=== PATIENT | female | born 1985 | race Caucasian/White ===

== ENCOUNTER 2022-04-20 12:45 | Emergency (ER) | payer OTHER, SELFPAY ==
[2022-04-20 13:09] VITALS: BP 120/79; PULSE 105; RESP 18; TEMP 36.6; O2SAT 100
--- NOTE | 2022-04-20 13:27 | ED.GENADULT ---
HPI - General Adult General Time Seen by Provider: 13:27 Date Seen: 04/20/22 Chief complaint: Vaginal Bleeding Stated complaint: dizziness, light headed, pos. low hemoglobin Time Seen by Provider: 04/20/22 12:48 Source: patient Mode of arrival: ambulatory Limitations: no limitations History of Present Illness HPI narrative: Patient is a very pleasant 36 year white female has got a 3-1/2-year-old at home, miscarried unfortunately at 5 weeks. She is cared for by Cecilia as an. Her blood type is O-positive. She has not required RhoGAM in the past with a prior miscarriage this year. She felt a little dizzy and lightheaded last night today, but she did get her COVID vac seen yesterday boosted and also got a flu shot. She has had some vaginal bleeding but it is less than it has been. Her primary care doctor was concerned she might have a low hemoglobin so she was asked to come to the emergency department. No chest pain, no fevers, no chills, no cramping in the abdomen Related Data Home Medications Medication Instructions Recorded Confirmed vit no.95-ferrous 1 tab PO DAILY 04/20/22 04/20/22 fumarate 28 mg-folic acid 800 mcg tablet ( Multivitamins) Allergies Allergy/AdvReac Type Severity Reaction Status Date / Time No Known Drug Allergies Allergy Verified 04/20/22 13:13 Review of Systems Status of ROS: Reports: 6 or more systems reviewed and unremarkable except as noted in History and below PFSH PFSH Social History Smoking Status: Never smoker Do you use any of these nicotine containing products: None Second hand tobacco smoke exposure: No How often do you have a drink containing alcohol: monthly or less How often do you have six or more drinks on one occasion: Never AUDIT-C Alcohol total score: 1 Non-prescribed substance use: denies use Exam Narrative: Exam Narrative: Objective: Abdomen is benign soft nontender Extremities unremarkable Blood pressure is 120/79 pulse is 105 O2 sat 100% on room air Patient is noncyanotic In no distress, alert orient x3, works as a senior quality assurance analyst in [employer] Good peripheral perfusion noted Const: Vital Signs, click to edit/add: Vital Signs - 24 hr 04/20/22 13:09 04/20/22 14:07 04/20/22 14:20 Temperature 98 F Pulse Rate [Right Pulse Oximeter] 105 H 82 Pulse Rate [orthos tatic lying Pulse Oximeter] 73 Pulse Rate [orthos tatic sitting Puls e Oximeter] 95 Pulse Rate [orthos tatic standing Pul se Oximeter] 101 H Respiratory Rate 18 Blood Pressure [Ri ght Upper Arm] 120/79 108/70 Blood Pressure [or thostatic lying Ri ght Arm] 107/63 Blood Pressure [or thostatic sitting Right Arm] 103/72 Blood Pressure [or thostatic standing Right Arm] 121/90 H Pulse Oximetry 100 100 Oxygen Delivery Me thod Room Air Room Air Course Vital Signs Vital signs: Initial Vital Signs Temperature 98 F 04/20/22 13:09 Temperature Source Temporal Artery Scan 04/20/22 13:09 Pulse Rate 105 H 04/20/22 13:09 Pulse Rhythm 04/20/22 13:09 Respiratory Rate 18 04/20/22 13:09 Blood Pressure 120/79 04/20/22 13:09 Blood Pressure Mean 92 04/20/22 13:09 Blood Pressure Position Sitting 04/20/22 13:09 Pulse Oximetry 100 04/20/22 13:09 Oxygen Delivery Method 04/20/22 13:09 Vital Signs Temperature 98 F 04/20/22 13:09 Pulse Rate 105 H 04/20/22 13:09 Respiratory Rate 18 04/20/22 13:09 Blood Pressure 120/79 04/20/22 13:09 Pulse Oximetry 100 04/20/22 13:09 Oxygen Delivery Method 04/20/22 13:09 Temperature 98 F 04/20/22 13:09 Pulse Rate 82 04/20/22 14:20 Respiratory Rate 18 04/20/22 13:09 Blood Pressure 108/70 04/20/22 14:20 Pulse Oximetry 100 04/20/22 14:20 Oxygen Delivery Method 04/20/22 14:20 Medical Decision Making MDM Narrative Medical decision making narrative: Patient reports she has had a miscarriage at 5 weeks she is blood type O positive, her oral intake she has to force herself to drink but she is able to drink water adequately will give her some water here. Will check laboratory studies including CBC heme 4. Will check HCG as well. She is confident her blood type. Disposition pending findings, if her orthostatics are not abnormal and her blood is reassuring I think she can be discharged home for observation and then update regular doctor in the next 48 hours, return to ED sooner problems or concerns. Addendum: The patient's lab studies look reasonable, will check her orthostatics, her blood pressure remains solid. Update regular doctor next couple of days, return sooner problems or concerns. Lab Data Labs: Lab Results 04/20/22 04/20/22 04/20/22 Range/Units 12:49 13:30 13:30 WBC 5.34 (4.50-11.00) K/uL RBC 3.54 L (4.00-5.20) m/uL Hgb 10.9 L (12.0-16.0) gm/dL Hct 32.4 L (33.0-51.0) % MCV 92 (80-100) fL MCH 31 (26-34) pg MCHC 34 (32-36) gm/dL RDW Coeff of Brittany 11.9 (11.5-15.5) % Plt Count 254 (140-440) K/uL Neut % (Auto) 57.6 (42.0-72.0) % Lymph % (Auto) 27.5 (20-44) % [place] % (Auto) 12.4 H (0.0-11.0) % Eos % (Auto) 1.7 (0.0-7.0) % Baso % (Auto) 0.4 (0.0-3.0) % Neut # (Auto) 3.08 (1.7-7.0) K/uL Lymph # (Auto) 1.47 (0.90-2.90) K/uL [place] # (Auto) 0.70 (0.00-0.90) K/UL Eos # (Auto) 0.09 (0.00-0.50) K/uL Baso # (Auto) 0.02 (0.00-0.30) K/uL Abs Immat Gran (auto) 0.02 (0.00-0.30) K/uL Imm/Tot Granulo (auto) 0.4 % Sodium 138 (135-149) mmol/L Potassium 4.2 (3.6-5.1) mmol/L Chloride 107 (96-114) mmol/L Carbon Dioxide 25 (20-32) mmol/L BUN 10 (5-24) mg/dL Creatinine 0.7 (0.5-1.5) mg/dL Estimated GFR 116 ml/min Glucose 98 (60-115) mg/dL Calcium 9.0 (8.4-10.6) mg/dL C-Reactive Protein 0.7 (0.5-1.0) mg/dL HCG, Qual Positive (Negative) Discharge Plan Discharge Clinical Impression: Complete miscarriage, Dizziness Patient Disposition: Home w/ Parent or Adult Condition: Stable Additional Instructions: Light activity, rest, fluids, Advil as needed, update primary care physician in the next 48 hours, return to ED sooner problems concerns worsening. Recommend working from home over the next couple of days Activity Level: Light activity Discharge Diet: Regular Prescriptions: No Action PNV cmb#95-ferrous fumarate-FA [ Multivitamins] 28 mg iron- 800 mcg tablet 1 tab PO DAILY Follow Up/Referrals: Cecilia Ricardo MD [Primary Care Provider] - Stand Alone Forms: [employer] Info Instructions
[2022-04-20 13:50] LABS: Basophils Absolute Auto 0.02 K/uL (0.00-0.30); Basophils Percent Auto 0.4 % (0.0-3.0); Eosinophils Absolute Auto 0.09 K/uL (0.00-0.50); Eosinophils Percent Auto 1.7 % (0.0-7.0); Hematocrit 32.4 % (33.0-51.0); Hemoglobin* 10.9 gm/dL (12.0-16.0); Immature Granulocytes Abs Auto 0.02 K/uL (0.00-0.30); Immature Granulocytes Pct Auto 0.4 %; Lymphocytes Absolute Auto 1.47 K/uL (0.90-2.90); Lymphocytes Percent Auto 27.5 % (20-44); Mean Corpuscular HGB Conc 34 gm/dL (32-36); Mean Corpuscular Hemoglobin 31 pg (26-34); Mean Corpuscular Volume 92 fL (80-100); Monocytes Percent Auto 12.4 % (0.0-11.0); Neutrophils Absolute Auto 3.08 K/uL (1.7-7.0); Neutrophils Percent Auto 57.6 % (42.0-72.0); Platelet Count* 254 K/uL (140-440); RDW Coefficient of Variation % 11.9 % (11.5-15.5); Red Blood Count 3.54 m/uL (4.00-5.20); White Blood Count* 5.34 K/uL (4.50-11.00)
[2022-04-20 13:53] LABS: Slide Review Reflex No
[2022-04-20 14:05] LABS: Chloride* 107 mmol/L (96-114); Potassium* 4.2 mmol/L (3.6-5.1); Sodium* 138 mmol/L (135-149)
[2022-04-20 14:07] VITALS: BP 103/72; BP 107/63; BP 121/90; PULSE 101; PULSE 73; PULSE 95
[2022-04-20 14:07] LABS: Creatinine* 0.7 mg/dL (0.5-1.5); Estimated Glomerular Filt Rate 116 ml/min
[2022-04-20 14:08] LABS: Blood Urea Nitrogen* 10 mg/dL (5-24); Carbon Dioxide* 25 mmol/L (20-32); Glucose* 98 mg/dL (60-115)
[2022-04-20 14:11] LABS: C Reactive Protein* 0.7 mg/dL (0.5-1.0)
[2022-04-20 14:20] VITALS: BP 108/70; PULSE 82; O2SAT 100
[2022-04-20 16:13] LABS: HCG Qualitative Serum* Positive (Negative)
== END 2022-04-20 14:27 | disposition home or self-care (01) ==
LOC: ED 13:41
PROVIDERS: Emergency Provider Family Medicine; PCP Family Medicine
DX: R42 Dizziness and giddiness (principal); O03.6 Delayed or excessive hemorrhage following complete or unspecified spontaneous abortion
CPT/HCPCS: 36415; 80048; 84703; 85025; 86140; 87502; 87634; 87635; 99283

== ENCOUNTER 2023-02-22 09:41 | Outpatient (CLI) | payer OTHER, SELFPAY ==
[2023-02-22 10:23] LABS: Hemoglobin* 12.4 gm/dL (12.0-16.0); Mean Corpuscular HGB Conc 34 gm/dL (32-36); Mean Corpuscular Hemoglobin 32 pg (26-34); Mean Corpuscular Volume 94 fL (80-100); Platelet Count* 284 K/uL (140-440); Red Blood Count 3.92 m/uL (4.00-5.20); White Blood Count* 12.51 K/uL (4.50-11.00)
[2023-02-22 10:24] LABS: Slide Review Reflex No
[2023-02-22 10:30] VITALS: PULSE 79; O2SAT 97
[2023-02-22 10:31] VITALS: BP 123/78; PULSE 75; RESP 18; TEMP 36.6
[2023-02-22 10:37] LABS: Creatinine* 0.5 mg/dL (0.5-1.5); Estimated Glomerular Filt Rate 125 ml/min
[2023-02-22 10:38] LABS: Alanine Aminotransferase* 17 U/L (4-35); Aspartate Amino Transferase* 35 U/L (12-35); Blood Urea Nitrogen* 8 mg/dL (5-24)
[2023-02-22 10:40] LABS: Total Protein Urine 15 mg/dL
[2023-02-22 10:41] LABS: Creatinine Urine 18.9 mg/dL
[2023-02-22 10:47] VITALS: BP 114/76; PULSE 76
[2023-02-22 11:02] VITALS: BP 121/75; PULSE 87
[2023-02-22] MEDS: ACETAMINOPHEN 500 MG TABLET 1000 MG PO (11:09)
--- NOTE | 2023-02-22 12:09 | PC.OBNST ---
NST Note NST Note Start: 02/22/23 10:02 Freq: ONCE Status: Active Protocol: Document 02/22/23 12:03 [facility] (Rec: 02/22/23 12:09 LG [id number]) NST Note 3 Para (# of births) 1 EDC 05/19/23 Gestational Age In Weeks & Days 27 Weeks & 5 Days Patient Presented with Complaint(s) of Headache Other Complaints Patient presented for triage with complaints of ongoing headache since Monday at 0200. Patient reported headache as being dull and having only occasional relief . Patient reported headache will improve or resolve and then return when Tylenol wears off. Patient did report she felt this was more of a tension headache. Pre- eclampsia labs and serial blood pressures obtained. Reactive tracing. Orders received to discharge patient to home with instructions on when to return. Reactive Yes Appropriate for Gestational Age Yes FADI Stark, RN Date 02/22/23 FADI Bonilla RN Date 02/22/23 OB NST charge Yes Complete NST Note via Write Note Yes The provider's electronic signature indicates the NST is reactive/appropriate for gestational age. *Note to provider: If an addendum is required, open the patient's chart and click on the note under the Nurse/Allied Health tab.
== END 2023-02-22 11:40 | disposition home or self-care (01) ==
LOC: OB OUT 09:47 → OB 10:02
PROVIDERS: PCP Family Medicine; Visit Provider Family Medicine
DX: O26.892 Other specified pregnancy related conditions, second trimester (principal); R51.9 Headache, unspecified; Z3A.27 27 weeks gestation of pregnancy
CPT/HCPCS: 36415; 59025; 82565; 82570; 84156; 84450; 84460; 84520; 85027; 99213; A9270

== ENCOUNTER 2023-05-05 15:20 | Outpatient (CLI) | payer OTHER, SELFPAY ==
[2023-05-05 15:46] VITALS: PULSE 73; O2SAT 98
[2023-05-05 15:51] VITALS: PULSE 83; O2SAT 98
[2023-05-05 15:53] VITALS: BP 126/73; PULSE 72; RESP 16; TEMP 36.6
--- NOTE | 2023-05-05 16:44 | PC.OBNST ---
NST Note NST Note Start: 05/05/23 15:41 Freq: ONCE Status: Active Protocol: Document 05/05/23 15:41 [facility] (Rec: 05/05/23 16:44 [facility] [id number]) NST Note 4 Para (# of births) 1 EDC 05/19/23 Gestational Age In Weeks & Days 38 Weeks & 0 Days Patient Presented with Complaint(s) of Decreased movement Other Complaints Covid positive Reactive Yes Appropriate for Gestational Age Yes RN Calvin RN Date 05/05/23 Reactive Yes Appropriate for Gestational Age Yes FADI Dye RN Date 05/05/23 OB NST charge Yes Complete NST Note via Write Note Yes The provider's electronic signature indicates the NST is reactive/appropriate for gestational age. *Note to provider: If an addendum is required, open the patient's chart and click on the note under the Nurse/Allied Health tab.
--- NOTE | 2023-05-25 14:33 | PC.OBNST ---
NST Note NST Note Start: 05/05/23 15:41 Freq: ONCE Status: Discharge Protocol: Document 05/05/23 15:41 [facility] (Rec: 05/05/23 16:44 [facility] [id number]) NST Note 4 Para (# of births) 1 EDC 05/19/23 Gestational Age In Weeks & Days 38 Weeks & 0 Days Patient Presented with Complaint(s) of Decreased movement Other Complaints Covid positive Reactive Yes Appropriate for Gestational Age Yes RN Calvin RN Date 05/05/23 Reactive Yes Appropriate for Gestational Age Yes FADI Dye RN Date 05/05/23 OB NST charge Yes Complete NST Note via Write Note Yes The provider's electronic signature indicates the NST is reactive/appropriate for gestational age. *Note to provider: If an addendum is required, open the patient's chart and click on the note under the Nurse/Allied Health tab.
== END 2023-05-05 16:50 | disposition home or self-care (01) ==
LOC: OB OUT 15:22 → OB 15:22
PROVIDERS: PCP Family Medicine; Visit Provider Family Medicine
DX: O36.8130 Decreased fetal movements, third trimester, not applicable or unspecified (principal); Z3A.38 38 weeks gestation of pregnancy
CPT/HCPCS: 59025; 99213

== ENCOUNTER 2023-05-10 18:17 | Outpatient (CLI) | payer OTHER, SELFPAY ==
[2023-05-10] VITALS (10 sets, daily range): BP systolic 115–129; BP diastolic 70–77; PULSE 75–88; RESP 16; TEMP 37
[2023-05-10 19:04] LABS: Hematocrit 34.4 % (33.0-51.0); Hemoglobin* 11.5 gm/dL (12.0-16.0); Mean Corpuscular HGB Conc 33 gm/dL (32-36); Mean Corpuscular Hemoglobin 30 pg (26-34); Mean Corpuscular Volume 91 fL (80-100); Platelet Count* 235 K/uL (140-440); Red Blood Count 3.79 m/uL (4.00-5.20)
[2023-05-10 19:09] LABS: Slide Review Reflex No
[2023-05-10 19:32] LABS: Alanine Aminotransferase* 25 U/L (4-35); Aspartate Amino Transferase* 31 U/L (12-35); Blood Urea Nitrogen* 9 mg/dL (5-24); Creatinine* 0.5 mg/dL (0.5-1.5); Estimated Glomerular Filt Rate 125 ml/min
[2023-05-10 19:32] LABS: Total Protein Urine 23 mg/dL
[2023-05-10 19:33] LABS: Creatinine Urine 127.9 mg/dL
--- NOTE | 2023-05-10 23:01 | PC.OBNST ---
NST Note NST Note Start: 05/10/23 18:22 Freq: ONCE Status: Active Protocol: Document 05/10/23 20:40 [facility] (Rec: 05/10/23 23:00 [facility] [id number]) NST Note 4 Para (# of births) 1 EDC 05/19/23 Gestational Age In Weeks & Days 38 Weeks & 5 Days High Risk Factors Advanced Maternal Age Patient Presented with Complaint(s) of Other Other Complaints High blood pressure in clinic at 1600. Reactive Yes Appropriate for Gestational Age Yes FADI Sampson, RNC Date 05/10/23 Reactive Yes Appropriate for Gestational Age Yes FADI Zaldivar, RN Date 05/10/23 OB NST charge Yes Complete NST Note via Write Note Yes The provider's electronic signature indicates the NST is reactive/appropriate for gestational age. *Note to provider: If an addendum is required, open the patient's chart and click on the note under the Nurse/Allied Health tab.
== END 2023-05-10 21:03 | disposition home or self-care (01) ==
LOC: OB OUT 18:17 → OB 18:18
PROVIDERS: PCP Family Medicine; Visit Provider Family Medicine
DX: O09.523 Supervision of elderly multigravida, third trimester (principal); Z3A.38 38 weeks gestation of pregnancy
CPT/HCPCS: 36415; 59025; 82565; 82570; 84156; 84450; 84460; 84520; 85027; G0463

== ENCOUNTER 2023-05-12 17:02 | Inpatient (IN) | payer OTHER, SELFPAY ==
[2023-05-12] VITALS (12 sets, daily range): BP systolic 131–146; BP diastolic 82–93; PULSE 75–93; RESP 16; TEMP 36.7–37.1; O2SAT 98–100; BMI 35.6
[2023-05-12 17:51] LABS: Creatinine Urine 48.9 mg/dL; Total Protein Urine 17 mg/dL
[2023-05-12 18:16] LABS: Hematocrit 35.6 % (33.0-51.0); Hemoglobin* 11.9 gm/dL (12.0-16.0); Mean Corpuscular HGB Conc 33 gm/dL (32-36); Mean Corpuscular Hemoglobin 30 pg (26-34); Mean Corpuscular Volume 91 fL (80-100); Platelet Count* 241 K/uL (140-440); Red Blood Count 3.93 m/uL (4.00-5.20); White Blood Count* 10.24 K/uL (4.50-11.00)
[2023-05-12] MEDS: LACTATED RINGERS 1000 ML 1,000 ML 125 ML IV (18:19)
[2023-05-12] MEDS: OXYTOCIN 30 unit/500 ML in NS 30 UNIT/500 ML BAG IVPB (18:20)
[2023-05-12 18:22] LABS: Slide Review Reflex No
--- NOTE | 2023-05-12 18:28 | PM.OBHPLI ---
OB - H&P: HPI Labor/Induction History of Present Illness Time Seen by Provider: 18:28 Date Seen: 05/12/23 Chief Complaint: The patient is a 37 year old 4 para 1 at 39.0 weeks gestation by early ultrasound (due to irregular periods from prior miscarriage) who presents for IOL for gestational hypertension. Chief complaint: Maternity : 4 Para: 1 Indications for induction: induced hypertension Narrative: Loly Muñoz is a 37 year old 4 para 1 at 39.0 weeks gestation by early ultrasound (due to irregular periods from prior miscarriage) who presents for IOL for gestational hypertension. Patient presented to clinic with headache today. Had work up 2 days ago for 1 elevated bp (had 4 hours of normal BPs at center). Discharged home. Had 2nd elevated BP in clinic today. Given 2 bp readings >4 hours apart elected to do IOL tonight for AMA and gestational hypertension. History of Present Dating criteria: based on 1st trimester US only care: good care Ultrasounds: normal 1st trimester US and normal mid trimester US complications: gestational hypertension complications comment: AMA Labs Blood type: O (+) positive Rubella: immune RPR/VDLR: nonreactive GBS status: negative HBsAG: negative Review of Systems Status of ROS: Reports: 10 or more systems reviewed and unremarkable except as noted in History and below Meds Home Medications and Allergies Home Medications Medication Instructions Recorded Confirmed Type vit no.95-ferrous 1 tab PO DAILY 04/20/22 05/12/23 History fumarate 28 mg-folic acid 800 mcg tablet ( Multivitamins) aspirin 81 mg tablet,delayed 81 mg PO DAILY 05/10/23 05/12/23 History release (Adult Low Dose Aspirin) fluoxetine 10 mg capsule (Prozac) 10 mg PO QAM 05/10/23 05/12/23 History Allergies Allergy/AdvReac Type Severity Reaction Status Date / Time No Known Drug Allergies Allergy Verified 05/10/23 18:59 OB - H&P: Exam Physical Exam: Vital signs: Temp Pulse Resp BP Pulse Ox 98.6 F 83 16 146/93 H 98 05/12/23 17:35 05/12/23 18:27 05/12/23 17:35 05/12/23 18:27 05/12/23 17:32 Constitutional: Constitutional: no acute distress Routine HEENT Exam: Head: Present atraumatic Routine Neck Exam: Neck: Present full ROM Detailed Neck Exam: Thyroids: Thyroid: Present normal Routine Respiratory Exam: Respiratory: Present CTA bilaterally Routine Cardiovascular Exam: Cardiovascular: RRR, S1 and S2 Routine Exam: Perineum Description: Normal Detailed Labor and Delivery Exam: Patient Gravid: Yes Dilation (cm): 3 Effacement (%): 60 Cervix position: mid Consistency: soft Cervical ripeness score: 7 Contraction frequency (min): 5 Tachysystole: No Contraction intensity: Mild Fetus (Single): Station: -2 Amniotic Membrane Status: intact Monitor Accelerations: Present Monitor Decelerations: None Routine Skin Exam: Present intact Routine Neurological Exam: Present alert and oriented X3 OB - Results Labs Labs: Short CBC 05/12/23 Range/Units 18:10 WBC 10.24 (4.50-11.00) K/uL Hgb 11.9 L (12.0-16.0) gm/dL Hct 35.6 (33.0-51.0) % Plt Count 241 (140-440) K/uL OB - Problem Based A/P Additional Plan (1) Gestational HTN: Status: Acute Plan: - preeclampsia labs now - close monitoring of BP (2) Advanced maternal age (AMA) in : Problem details: 37 years old Status: Acute (3) Term : Status: Acute Plan - Pitocin, AROM if needed - FOB on day 8 of covid. (Patient outside of her 10 day quarantine) Delivery/Labor/Induction Plan Plan: induction Induction method: per pitocin protocol
[2023-05-12 18:36] LABS: Creatinine* 0.5 mg/dL (0.5-1.5); Estimated Glomerular Filt Rate 125 ml/min
[2023-05-12 18:37] LABS: Alanine Aminotransferase* 26 U/L (4-35); Aspartate Amino Transferase* 31 U/L (12-35); Blood Urea Nitrogen* 8 mg/dL (5-24)
--- NOTE | 2023-05-12 22:11 | PM.OBPNL ---
Subjective Time Seen by Provider: 21:00 Date Seen: 05/12/23 Narrative: Patient is starting to feel contractions. Objective Exam: walking around room Vital Signs: Last Vital Signs Temp 98.7 F 05/12/23 20:10 Pulse 76 05/12/23 21:37 Resp 16 05/12/23 20:10 BP 137/83 05/12/23 21:37 Pulse Ox 100 05/12/23 20:09 Contractions Monitor mode: External Contraction Frequency: 2-4 Contraction pattern: Regular Contraction intensity: Moderate Pitocin Rate (mU/min): 4 Assessment Assessment: induction ongoing Station: -2 Status: Category l Heart Rate Baseline: 135 Monitor Accelerations: Present Monitor Decelerations: None Maternal Status: Patient's labs returned with Prot/cr ratio of 0.3. Now meets criteria for preeclampsia without severe features. Will monitor closely. Plan Plan: - continue to progress pitocin - AROM if needed.
[2023-05-13] VITALS (18 sets, daily range): BP systolic 119–158; BP diastolic 63–99; PULSE 68–105; RESP 16; TEMP 36.5–37.1; O2SAT 98–100
--- NOTE | 2023-05-13 00:13 | PM.OBPNL ---
Subjective Time Seen by Provider: 00:13 Date Seen: 05/13/23 Narrative: Patient feels contractions are becoming more intense, but still able to rest some. Objective Vital Signs: Last Vital Signs Temp 98.4 F 05/12/23 23:57 Pulse 76 05/12/23 23:56 Resp 16 05/12/23 23:57 BP 137/85 05/12/23 23:56 Pulse Ox 99 05/12/23 23:56 Pelvic Exam Dilation (cm): 5 Effacement (%): 60 Station: -2 Contractions Monitor mode: External Contraction pattern: Regular Contraction intensity: Moderate Pitocin Rate (mU/min): 6 Assessment Assessment: induction ongoing Station: -2 Amniotic Membrane Status: AROM (clear fluid) Status: Category l Heart Rate Baseline: 135 Monitor Accelerations: Present Monitor Decelerations: Variable Labor Progress: AROM now of moderate clear fluid. Plan Plan: - continue IOL - plan on repeat preeclampsia labs at 0600 - No blood pressures in treatable range or signs of severe features - AROM now of clear fluid, hoping this augments labor induction - Anticipate . Patient plans unmedicated.
[2023-05-13] MEDS: LIDOCAINE 1 % PF 30 ML INJECTION (01:45)
--- NOTE | 2023-05-13 02:11 | W.PM.VAGDE_ITS ---
OB Procedure Vag Delivery Mother Details Mother Details: The patient is a 37 year-old, 4, Para 1, admitted on 05/12/23 at Days gestation. : 4 Para: 2 Weeks Gestation: 39.1 Admission Date: 05/12/23 Additional Details Amniotic Membrane Status: AROM Amniotic Membrane Rupture Date: 05/13/23 Amniotic Membrane Rupture Time: 00:02 Amniotic Membrane Fluid Description: Clear Analgesia/Anesthesia Type: None Pitcoin: No Intrapartal Events: Labor Induction and Precipitous Labor <3 Hrs Induction Method: per pitocin protocol and AROM Labor Onset: 00:02 Complete: :31 Pushin:31 Heart: heart tones during second stage had decels to 80s in certain positions (notably squatting and bending forward). Resolved with position changes. Tolerated pushing reasonably well until last push. Had prolonged decel in 80- 90s during last 2 contractions/. Delivery Details Delivery Date: 05/13/23 Delivery Time: 01:34 Route of delivery: Infant Gender: Male Viability: Alive; Heart Rate Present Position at Delivery: OA Delivery Details: Patient was admitted for IOL for gestational htn. Labs shows proteinuria, so preeclampsia was diagnosed. Patient received pitocin for IOL. Had AROM of clear fluid at 0002. Progressed quickly thereafter. She was involuntarily pushing, reduced anterior lip with first push. She pushed very effectively and delivered viable male infant over intact perineum at 0134 via spontaneous vaginal delivery. Nuchal cord x 1 was delivered through. Baby was delivered onto maternal abdomen. Cord was clamped immediately as baby had poor tone/color-- but recovered without being taken to warmer. Nose a mouth were bulb suctioned. Placenta delivered spontaneously. Evaluation of perineum showed 2nd degree laceration that was repaired with 3-0 vicryl in the usual fashion after administration of 8 mls of lidocaine. Fundus was firm. Pitocin was delivered after baby as we lost IV access temporarily. QBL was 150 mls. Infant weight pending. Mom and baby are doing well at the time of this note. 1 Minute Interval Total Score: 6 5 Minute Interval Total Score: 8 Additional Details Shoulder Dystocia: No Placenta Delivery Time: 01:43 Placental Delivery Description: Spontaneous Delivery repair: Vicryl Procedure Done: Global Blood Loss: 150 Laceration: Perineal - 2nd Degree Episiotomy Description: Midline Blood Loss Measurement Type: QBL Bakri Used: No Sponge/Need Count Correct: Yes Cord Vessel Description: 3 Vessels, Nuchal Cord and Delivered through Event Summary Status: Mother and infant were stable after delivery. Disposition: no change
[2023-05-13] MEDS: IBUPROFEN 600 MG TABLET PO ×3 (04:44→20:33)
[2023-05-13 07:24] LABS: Alanine Aminotransferase* 28 U/L (4-35); Aspartate Amino Transferase* 46 U/L (12-35); Blood Urea Nitrogen* 7 mg/dL (5-24); Creatinine* 0.4 mg/dL (0.5-1.5); Est. Creatinine Clearance* 148.13; Estimated Glomerular Filt Rate 132 ml/min
[2023-05-13] MEDS: DOCUSATE SODIUM 100 MG CAPSULE PO (09:28)
[2023-05-13] MEDS: ACETAMINOPHEN 500 MG TABLET 1000 MG PO ×3 (09:28→23:37)
[2023-05-13] MEDS: NIFEdipine 30 MG TAB.ER.24 PO (14:06)
[2023-05-13 19:50] LABS: Hematocrit 32.6 % (33.0-51.0); Mean Corpuscular HGB Conc 34 gm/dL (32-36); Mean Corpuscular Hemoglobin 31 pg (26-34); Mean Corpuscular Volume 92 fL (80-100); Platelet Count* 248 K/uL (140-440); Red Blood Count 3.56 m/uL (4.00-5.20)
[2023-05-13 20:10] LABS: Slide Review Acceptable Review (Acceptable); Slide Review Reflex Yes; White Blood Count* 25.47 K/uL (4.50-11.00)
[2023-05-13 20:34] LABS: Hematocrit 28.5 % (33.0-51.0); Hemoglobin* 9.5 gm/dL (12.0-16.0); Mean Corpuscular HGB Conc 33 gm/dL (32-36); Mean Corpuscular Hemoglobin 31 pg (26-34); Mean Corpuscular Volume 93 fL (80-100); Platelet Count* 217 K/uL (140-440); Red Blood Count 3.07 m/uL (4.00-5.20); White Blood Count* 16.04 K/uL (4.50-11.00)
[2023-05-13 20:38] LABS: Slide Review Reflex No
[2023-05-13 20:49] LABS: Alanine Aminotransferase* 30 U/L (4-35); Aspartate Amino Transferase* 46 U/L (12-35); Creatinine* 0.5 mg/dL (0.5-1.5); Estimated Glomerular Filt Rate 125 ml/min
[2023-05-14] VITALS (12 sets, daily range): BP systolic 115–134; BP diastolic 75–87; PULSE 14–90; RESP 16; TEMP 36.6–37; O2SAT 97–99
[2023-05-14] MEDS: IBUPROFEN 600 MG TABLET PO ×3 (02:32→16:42)
[2023-05-14 04:38] LABS: Basophils Percent Auto 0.3 % (0.0-3.0); Eosinophils Percent Auto 0.6 % (0.0-7.0); Hematocrit 29.1 % (33.0-51.0); Hemoglobin* 9.6 gm/dL (12.0-16.0); Immature Granulocytes Pct Auto 1.9 %; Lymphocytes Percent Auto 16.5 % (20-44); Mean Corpuscular HGB Conc 33 gm/dL (32-36); Mean Corpuscular Hemoglobin 31 pg (26-34); Mean Corpuscular Volume 94 fL (80-100); Monocytes Percent Auto 6.6 % (0.0-11.0); Neutrophils Percent Auto 74.1 % (42.0-72.0); Platelet Count* 220 K/uL (140-440); RDW Coefficient of Variation % 12.9 % (11.5-15.5); Red Blood Count 3.11 m/uL (4.00-5.20); White Blood Count* 14.04 K/uL (4.50-11.00)
[2023-05-14 04:40] LABS: Slide Review Reflex No
[2023-05-14 04:53] LABS: Alanine Aminotransferase* 36 U/L (4-35); Aspartate Amino Transferase* 53 U/L (12-35); Creatinine* 0.5 mg/dL (0.5-1.5); Estimated Glomerular Filt Rate 125 ml/min
[2023-05-14] MEDS: ACETAMINOPHEN 500 MG TABLET 1000 MG PO (07:42)
[2023-05-14] MEDS: DOCUSATE SODIUM 100 MG CAPSULE PO (08:41)
[2023-05-14] MEDS: NIFEdipine 30 MG TAB.ER.24 PO (08:41)
[2023-05-14 12:01] LABS: Hematocrit 28.6 % (33.0-51.0); Hemoglobin* 9.3 gm/dL (12.0-16.0); Mean Corpuscular HGB Conc 33 gm/dL (32-36); Mean Corpuscular Hemoglobin 31 pg (26-34); Mean Corpuscular Volume 94 fL (80-100); Platelet Count* 231 K/uL (140-440); Red Blood Count 3.03 m/uL (4.00-5.20); White Blood Count* 13.17 K/uL (4.50-11.00)
[2023-05-14 12:09] LABS: Slide Review Reflex No
[2023-05-14 12:19] LABS: Alanine Aminotransferase* 60 U/L (4-35); Aspartate Amino Transferase* 82 U/L (12-35); Creatinine* 0.5 mg/dL (0.5-1.5); Estimated Glomerular Filt Rate 125 ml/min
--- NOTE | 2023-05-14 12:52 | P.OBPN_ITS ---
OB - PN:Subj Subjective Date Seen: 05/14/23 Interval history: Patient reports she is doing well this morning, has no particular concerns. going well. Minimal vaginal bleeding without clots noted. Continues to have slight headache on and off, although denies headache during our visit. Also endorses occasional RUQ discomfort with movement at times. Describes this as a mild side stitch like she might have after going for a run or perhaps like gas pain. OB - PN: Obj Exam Physical Exam: Vital signs: Temp Pulse Resp BP Pulse Ox O2 Del Method 98.6 F 82 16 115/77 97 Room Air 05/14/23 08:26 05/14/23 08:26 05/14/23 08:26 05/14/23 08:12 05/14/23 08:26 05/14/23 08:26 Constitutional: Constitutional: no acute distress Routine HEENT Exam: Head: Present atraumatic Routine Respiratory Exam: Respiratory: Present CTA bilaterally Routine Cardiovascular Exam: Cardiovascular: Present RRR; Absent murmur Routine Abdominal Exam: Abdominal: Present normal bowel sounds and soft; Absent guarding or tenderness Fundus: Present firm Comments: no hepatomegaly Routine Extremities Exam: Comments: trace to 1+ b/l LE edema Routine Neurological Exam: Neurological: Present alert and oriented X3 OB - PN: Obj Data Labs Labs: Laboratory Results - last 24 hr 05/13/23 05/13/23 05/14/23 06:45 20:29 04:20 WBC 25.47 H* 16.04 H 14.04 H RBC 3.56 L 3.07 L 3.11 L Hgb 11.0 L 9.5 L 9.6 L Hct 32.6 L 28.5 L 29.1 L MCV 92 93 94 MCH 31 31 31 MCHC 34 33 33 RDW Coeff of Brittany 12.9 Plt Count 248 217 220 Neut % (Auto) 74.1 H Lymph % (Auto) 16.5 L [place] % (Auto) 6.6 Eos % (Auto) 0.6 Baso % (Auto) 0.3 Neut # (Auto) 10.40 H Lymph # (Auto) 2.30 [place] # (Auto) 0.90 Eos # (Auto) 0.10 Baso # (Auto) 0.00 Abs Immat Gran (auto) 0.30 Imm/Tot Granulo (auto) 1.9 Diff Slide Review Acceptable Review Creatinine 0.5 Estimated Creat Clear 118.50 Estimated GFR 125 AST 46 H ALT 30 05/14/23 05/14/23 04:25 11:52 WBC 13.17 H RBC 3.03 L Hgb 9.3 L Hct 28.6 L MCV 94 MCH 31 MCHC 33 RDW Coeff of Brittany Plt Count 231 Neut % (Auto) Lymph % (Auto) [place] % (Auto) Eos % (Auto) Baso % (Auto) Neut # (Auto) Lymph # (Auto) [place] # (Auto) Eos # (Auto) Baso # (Auto) Abs Immat Gran (auto) Imm/Tot Granulo (auto) Diff Slide Review Creatinine 0.5 0.5 Estimated Creat Clear 118.50 118.50 Estimated GFR 125 125 AST 53 H 82 H ALT 36 H 60 H OB - PN: A/P Delivery Assessment and Plan (1) Advanced maternal age (AMA) in : Problem details: 37 years old Status: Acute (2) Term : Status: Acute (3) Pre-eclampsia, severe, delivered: Problem details: based on urine protein/creatinine ratio of 0.3 and AST elevation greater than 2x upper limit of normal Status: Acute Plan 1. Pre-eclampsia with severe features, delivered based on urine protein/creatinine ratio of 0.3 and development of AST elevation greater than 2x upper limit of normal - begin magnesium infusion, 4 g loading with 2 g/hr x24 hrs - labs Q6H (CBC, AST, ALT, Creatinine) - continue nifedipine ER 30 mg/day - continue to monitor headaches, RUQ pain, etc 2. Term , delivered - ad jerrod - routine cares Plan day: 1
[2023-05-14] MEDS: MAGNESIUM IV 4 GM/100 ML PIGGYBACK IVPB (13:12)
[2023-05-14] MEDS: LACTATED RINGERS 1000 ML 1,000 ML 75 ML IV (13:14)
[2023-05-14] MEDS: ACETAMINOPHEN 325 MG TABLET 650 MG PO (14:49)
[2023-05-14] MEDS: FLUOXETINE HCL 10 MG CAPSULE PO (14:49)
[2023-05-14 19:05] LABS: Hematocrit 31.5 % (33.0-51.0); Hemoglobin* 10.3 gm/dL (12.0-16.0); Mean Corpuscular HGB Conc 33 gm/dL (32-36); Mean Corpuscular Hemoglobin 31 pg (26-34); Mean Corpuscular Volume 94 fL (80-100); Platelet Count* 275 K/uL (140-440); Red Blood Count 3.35 m/uL (4.00-5.20); White Blood Count* 13.24 K/uL (4.50-11.00)
[2023-05-14 19:08] LABS: Slide Review Reflex No
[2023-05-14 19:25] LABS: Alanine Aminotransferase* 113 U/L (4-35); Aspartate Amino Transferase* 151 U/L (12-35); Blood Urea Nitrogen* 3 mg/dL (5-24); Creatinine* 0.5 mg/dL (0.5-1.5); Estimated Glomerular Filt Rate 125 ml/min
[2023-05-15] MEDS: IBUPROFEN 600 MG TABLET PO ×4 (00:09→21:12)
[2023-05-15 01:02] LABS: Hemoglobin* 9.5 gm/dL (12.0-16.0); Mean Corpuscular HGB Conc 33 gm/dL (32-36); Mean Corpuscular Hemoglobin 31 pg (26-34); Mean Corpuscular Volume 94 fL (80-100); Platelet Count* 253 K/uL (140-440); White Blood Count* 12.08 K/uL (4.50-11.00)
[2023-05-15 01:07] LABS: Slide Review Reflex No
[2023-05-15 01:18] LABS: Aspartate Amino Transferase* 165 U/L (12-35); Creatinine* 0.5 mg/dL (0.5-1.5); Estimated Glomerular Filt Rate 125 ml/min
[2023-05-15 01:19] LABS: Alanine Aminotransferase* 141 U/L (4-35); Blood Urea Nitrogen* 6 mg/dL (5-24)
[2023-05-15] MEDS: LACTATED RINGERS 1000 ML 1,000 ML 75 ML IV (02:26)
[2023-05-15 04:57] VITALS: BP 125/86; PULSE 81; RESP 10; TEMP 36.6; O2SAT 98
[2023-05-15 06:17] LABS: Hematocrit 31.5 % (33.0-51.0); Hemoglobin* 10.3 gm/dL (12.0-16.0); Mean Corpuscular HGB Conc 33 gm/dL (32-36); Mean Corpuscular Hemoglobin 31 pg (26-34); Mean Corpuscular Volume 94 fL (80-100); Platelet Count* 265 K/uL (140-440); Red Blood Count 3.34 m/uL (4.00-5.20); White Blood Count* 11.25 K/uL (4.50-11.00)
[2023-05-15 06:27] LABS: Slide Review Reflex No
[2023-05-15 06:31] LABS: Albumin* 3.4 g/dL (3.3-5.0)
[2023-05-15 06:32] LABS: Bilirubin Total* 0.1 mg/dL (0.1-1.5)
[2023-05-15 06:34] LABS: Alanine Aminotransferase* 179 U/L (4-35); Alkaline Phosphatase* 201 U/L (40-150); Aspartate Amino Transferase* 196 U/L (12-35); Bilirubin Total* 0.1 mg/dL (0.1-1.5); Total Protein* 6.5 g/dL (6.0-8.3)
[2023-05-15 06:38] LABS: Lactate Dehydrogenase* 472 U/L (120-246)
[2023-05-15 06:39] LABS: Creatinine* 0.5 mg/dL (0.5-1.5); Estimated Glomerular Filt Rate 125 ml/min
[2023-05-15 06:40] LABS: Alanine Aminotransferase* 179 U/L (4-35); Aspartate Amino Transferase* 193 U/L (12-35); Blood Urea Nitrogen* 5 mg/dL (5-24); Magnesium* 5.6 mg/dL (1.5-2.6)
[2023-05-15 07:58] VITALS: BP 128/84; PULSE 79; RESP 16; TEMP 36.7
[2023-05-15 08:01] LABS: INR 0.89 (0.91-1.10); Prothrombin Time 12.6 Seconds
[2023-05-15 08:02] LABS: Fibrinogen* 487 mg/dL (200-450); Partial Thromboplastin Time* 25 Seconds (23-33)
--- NOTE | 2023-05-15 09:11 | P.OBCN_ITS ---
OB - CN: HPI Date of Consult Date Seen: 05/15/23 Patient: Maria D Patient Consult date: 05/15/23 Requesting Physician: Meg Villalobos MD Primary Care Provider: Cecilia Ricardo MD Consult Narrative Narrative: Loly is a 37-year-old seen by kind request of Dr. Villalobos for evaluation of preeclampsia with severe features. I have reviewed the available records, interviewed and examined the patient. I have discussed my recommendations with Dr. Villalobos. Loly is a G4 now P 2 woman who is day 2 status post normal spontaneous vaginal delivery on 05/13/2023 at 39 weeks, 1 day gestation after induction of labor for gestational hypertension. She was newly noted to have an elevated protein to creatinine ratio during her induction of labor. She had an uncomplicated spontaneous vaginal delivery at 1:34 a.m. on 05/13/2023. She had a second-degree perineal laceration. EBL was 150 mL. She was started on nifedipine ER 30 mg daily for blood pressure control . Currently, this is even at 9:00 a.m. daily. On 05/14/2023, she was noted to have newly elevated transaminases, greater than 2 times the upper limit of normal. Preeclampsia with severe features was diagnosed based on this finding. She was started on magnesium sulfate for seizure prophylaxis at 1:00 p.m. on 05/14/2023. This was originally at a rate of 2 g / hour. This rate was decreased this AM to 1 g / hour due to concerns regarding low respiratory rate; this was noted to be 10 at 0457 today. After decrease in dose, patient has experienced less double vision. Her magnesium level was not in toxic ranges. Her respiratory rate has normalized; 16 most recently. Her was otherwise complicated by/notable for: 1. Advanced maternal age 2. Depression and anxiety. She just started fluoxetine, and is only taking a dose of 10 mg daily. 3. COVID infection, diagnosed 04/30/2023. History of Present complications: gestational hypertension complications comment: AMA History History 4 Elective abortions Para 2 Spontaneous abortions Hx # Term Pregnancies Ectopic pregnancies Hx # Pregnancies Multiple births Number of Living Children 1 Labs Blood type: O (+) positive Rubella: immune RPR/VDLR: nonreactive GBS status: negative HBsAG: negative OB Labs: Lab Assessment Start: 05/12/23 17:10 Freq: ONCE Status: Complete Protocol: PC.OBGBS Activity Type Activity Date Activity User E-sign Co-sign Detail Recorded Client Recorded Date Recorded By Document 05/12/23 18:38 MMB [id number] 05/12/23 18:39 MMB 05/12/23 18:38 Lab Assessment GBS Status negative GBS Additional Criteria None No Treatment Needed OK Are Labs Available Yes Maternal RH Factor Positive Evaluate Maternal Rubella Immune Status Immune Hepatitis B Surface Antigen Negative Maternal HIV Status Negative Maternal Syphillis (RPR) Status Negative [facility] Medical History (Updated 05/14/23 @ 13:10 by Nolvia Hatfield DO) Pre-eclampsia, severe, delivered ?O14.14 - Severe pre-eclampsia complicating childbirth (ICD-10) Gestational HTN ?O13.9 - Gestational [-induced] hypertension without significant proteinuria, unspecified trimester (ICD-10) Family History (Updated 05/15/23 @ 09:55 by Pooja Castillo MD) Other High blood pressure Social History (Updated 05/15/23 @ 09:55 by Pooja Castillo MD) Narrative: She lives in [place] with her . She has a 5-year-old daughter. What is your current living situation?: I presently have a place to live Problems where you live: no known problems In the past 12 months, utilities in danger of being shut off: no In past 12 months, lack of transportation kept you from medical appts, meetings, work, or getting things needed for daily living: no In the past 12 mos, have been you worried that your food would run out before you had money to buy more?: never true In the past 12 mos, the food you bought just didn't last and you didn't have money to buy more?: never true Smoking Status: Never smoker Do you use any of these nicotine containing products: None Second hand tobacco smoke exposure: No How often do you have a drink containing alcohol: monthly or less How often do you have six or more drinks on one occasion: Never AUDIT-C Alcohol total score: 1 Non-prescribed substance use: denies use How often does anyone, including family, friends and others, physically hurt you : never How often does anyone, including family, friends and others, insult or talk down to you: never How often does anyone, including family, friends and others, threaten you with harm: never How often does anyone, including family, friends and others, scream or curse at you: never Meds Home Medications and Allergies Home Medications Medication Instructions Recorded Confirmed Type vit no.95-ferrous 1 tab PO DAILY 04/20/22 05/12/23 History fumarate 28 mg-folic acid 800 mcg tablet ( Multivitamins) aspirin 81 mg tablet,delayed 81 mg PO DAILY 05/10/23 05/12/23 History release (Adult Low Dose Aspirin) fluoxetine 10 mg capsule (Prozac) 10 mg PO QAM 05/10/23 05/12/23 History Allergies Allergy/AdvReac Type Severity Reaction Status Date / Time No Known Drug Allergies Allergy Verified 05/10/23 18:59 OB - H&P: Exam Physical Exam: Vital signs: Temp Pulse Resp BP Pulse Ox O2 Del Method 98.0 F 79 16 128/84 98 Room Air 05/15/23 07:58 05/15/23 07:58 05/15/23 07:58 05/15/23 07:58 05/15/23 04:57 05/15/23 04:57 I&O: LR running at 75 cc / hr magnesium infusion running at 2 g / hour 05/14/23: -2550. Notably, 6350 cc was no ralph to be PO intake, no IV noted. 05/15/23 thus far: +130 cc. Narrative: General: Pleasant, no acute distress Heart: Regular rate and rhythm, no murmur or gallop Lungs: Clear to auscultation bilaterally Abdomen: Soft, nontender, fundus well below umbilicus Lower extremities: No edema, SCDs in place OB - Results Labs Labs: Short CBC 05/14/23 05/14/23 05/15/23 Range/Units 11:52 18:58 00:58 WBC 13.17 H 13.24 H 12.08 H (4.50-11.00) K/uL Hgb 9.3 L 10.3 L 9.5 L (12.0-16.0) gm/dL Hct 28.6 L 31.5 L 29.0 L (33.0-51.0) % Plt Count 231 275 253 (140-440) K/uL 05/15/23 Range/Units 06:05 WBC 11.25 H (4.50-11.00) K/uL Hgb 10.3 L (12.0-16.0) gm/dL Hct 31.5 L (33.0-51.0) % Plt Count 265 (140-440) K/uL BMP 05/14/23 05/14/23 05/15/23 11:52 18:58 00:58 BUN 3 L 6 Creatinine 0.5 0.5 0.5 05/15/23 06:05 BUN 5 Creatinine 0.5 Liver Function 05/14/23 05/14/23 05/15/23 Range/Units 11:52 18:58 00:58 Total Bilirubin (0.1-1.5) mg/dL Direct Bilirubin (0.0-0.5) mg/dL AST 82 H 151 H 165 H (12-35) U/L ALT 60 H 113 H 141 H (4-35) U/L Alkaline Phosphatase (40-150) U/L Albumin (3.3-5.0) g/dL 05/15/23 05/15/23 05/15/23 Range/Units 06:05 06:05 06:05 Total Bilirubin 0.1 0.1 (0.1-1.5) mg/dL Direct Bilirubin 0.0 (0.0-0.5) mg/dL AST 193 H 196 H (12-35) U/L ALT 179 H (4-35) U/L Alkaline Phosphatase (40-150) U/L Albumin (3.3-5.0) g/dL 05/15/23 Range/Units 06:05 Total Bilirubin (0.1-1.5) mg/dL Direct Bilirubin (0.0-0.5) mg/dL AST (12-35) U/L ALT 179 H (4-35) U/L Alkaline Phosphatase 201 H (40-150) U/L Albumin 3.4 (3.3-5.0) g/dL Initial transaminases at time of admission were normal. OB - CN: A/P Assessment and Plan (1) Pre-eclampsia, severe, delivered: Problem details: based on urine protein/creatinine ratio of 0.3 and AST elevation greater than 2x upper limit of normal Status: Acute Plan Diagnosis based on elevation of blood pressures within the mild range, a protein to creatinine ratio greater than 0.3, and transaminases both elevated more than twice the upper limit of normal. She is maintained on nifedipine ER 30 mg daily. She has been normotensive throughout her course. Transaminases continue to increase. However, resolution of preeclampsia does not depend on immediate normalization or even decrease in transaminases. The most important indicator of resolution of disease is diuresis. She has had diuresis yesterday, with a negative fluid balance of greater than 2 L. It is more difficult to maintain negative fluid balance if one is taking in greater than 6 L a day. Because of this, I recommend cessation of maintenance IV fluids at this time. Her oral intake appears to be more than adequate. Otherwise, I recommend continuation of magnesium sulfate infusion for the usual 24 hours. I agree with serial HELLP labs throughout this time, and perhaps a repeat tomorrow morning. If there continues to be an increase, you may reach out to authorization coordinator OB for recommendations. I think it brantley to continue her inpatient status through tomorrow morning, in order to assure that her antihypertensive regimen is adequate at time of discharge; it is common for blood pressures to secondarily increase around day 5. Given this, after discharge, I recommend short interval follow-up in clinic with review of blood pressures. She will need a home blood pressure cuff for monitoring. Should worsening hypertension be noted prior to discharge, and a change in blood pressure management be required, it would be reasonable to begin with increase in nifedipine ER dose to 30 mg b.i.d..
[2023-05-15] MEDS: NIFEdipine 30 MG TAB.ER.24 PO (09:20)
[2023-05-15] MEDS: DOCUSATE SODIUM 100 MG CAPSULE PO (09:33)
[2023-05-15] MEDS: FLUOXETINE HCL 10 MG CAPSULE PO (09:33)
[2023-05-15 12:24] VITALS: BP 117/80; PULSE 78; RESP 20; TEMP 36.7
[2023-05-15 14:22] LABS: Hematocrit 32.3 % (33.0-51.0); Hemoglobin* 10.5 gm/dL (12.0-16.0); Mean Corpuscular HGB Conc 33 gm/dL (32-36); Mean Corpuscular Hemoglobin 31 pg (26-34); Mean Corpuscular Volume 94 fL (80-100); Platelet Count* 327 K/uL (140-440); Red Blood Count 3.43 m/uL (4.00-5.20); White Blood Count* 12.07 K/uL (4.50-11.00)
[2023-05-15 14:24] LABS: Slide Review Reflex No
[2023-05-15 14:30] LABS: Alanine Aminotransferase* 199 U/L (4-35); Aspartate Amino Transferase* 196 U/L (12-35); Blood Urea Nitrogen* 6 mg/dL (5-24); Creatinine* 0.6 mg/dL (0.5-1.5); Est. Creatinine Clearance* 98.75; Estimated Glomerular Filt Rate 120 ml/min
[2023-05-15 15:05] VITALS: BP 127/83; PULSE 92; RESP 16; TEMP 37.3
--- NOTE | 2023-05-15 17:33 | P.OBPN_ITS ---
OB - PN:Subj Subjective Time Seen by Provider: 07:45 Date Seen: 05/15/23 Interval history: Magnesium started for severe pre-E 05/14 ~1300. Diagnosis based on gestational HTN, Pr/Cr 0.3, LFTs >2x ULN. Mag rate decreased overnight d/t low RR. Normal BPs on oral nifedipine. Patient endorses ongoing mild CHAVEZ. RUQ discomfort has resolved. Feeling less foggy at after mag was decreased. Bleeding is minimal. Reports multiple large volume voids. is fair. Wishes to meet with . OB - PN: Obj Exam Physical Exam: Vital signs: Temp Pulse Resp BP Pulse Ox O2 Del Method 99.1 F 92 16 127/83 98 Room Air 05/15/23 15:05 05/15/23 15:05 05/15/23 15:05 05/15/23 15:05 05/15/23 04:57 05/15/23 04:57 Narrative: General appearance: Well-appearing adult female. Alert, oriented and appropriate. Sitting up in hospital bed. HEENT: EOMI, no conjunctival injection or discharge. MMM. Neck: Supple. CV: RRR, no rubs, murmurs or extra heart sounds. Pulm: CTAB, no wheezes, rales or rhonchi. Abdomen: Soft, non-tender. Fundus palpated at the umbilicus. MSK: Moving all extremities. Ext: Warm and well-perfused. No LE edema. Skin: No rashes appreciated over exposed skin. Neuro: Patellar reflexes present bilaterally. Grossly normal strength and sensation. No focal deficits. Psych: Normal affect. OB - PN: Obj Data Labs Labs: Laboratory Results - last 24 hr 05/14/23 05/15/23 05/15/23 18:58 00:58 06:05 WBC 13.24 H 12.08 H 11.25 H RBC 3.35 L 3.10 L 3.34 L Hgb 10.3 L 9.5 L 10.3 L Hct 31.5 L 29.0 L 31.5 L MCV 94 94 94 MCH 31 31 31 MCHC 33 33 33 Plt Count 275 253 265 INR APTT Fibrinogen BUN 3 L 6 5 Creatinine 0.5 0.5 0.5 Estimated Creat Clear 118.50 118.50 118.50 Estimated GFR 125 125 125 Magnesium 5.6 H* Total Bilirubin 0.1 Direct Bilirubin AST 151 H 165 H ALT 113 H 141 H Alkaline Phosphatase Lactate Dehydrogenase Total Protein Albumin 05/15/23 05/15/23 05/15/23 06:05 06:05 06:05 WBC RBC Hgb Hct MCV MCH MCHC Plt Count INR APTT Fibrinogen BUN Creatinine Estimated Creat Clear Estimated GFR Magnesium Total Bilirubin 0.1 Direct Bilirubin 0.0 AST 193 H 196 H ALT 179 H 179 H Alkaline Phosphatase 201 H Lactate Dehydrogenase 472 H Total Protein 6.5 Albumin 3.4 05/15/23 05/15/23 07:09 13:05 WBC 12.07 H RBC 3.43 L Hgb 10.5 L Hct 32.3 L MCV 94 MCH 31 MCHC 33 Plt Count 327 INR 0.89 L APTT 25 Fibrinogen 487 H BUN 6 Creatinine 0.6 Estimated Creat Clear 98.75 Estimated GFR 120 Magnesium Total Bilirubin Direct Bilirubin AST 196 H ALT 199 H Alkaline Phosphatase Lactate Dehydrogenase Total Protein Albumin OB - PN: A/P Delivery Assessment and Plan (1) Pre-eclampsia, severe, delivered: Problem details: based on urine protein/creatinine ratio of 0.3 and AST elevation greater than 2x upper limit of normal Status: Acute Plan - Formal OB consult for management of severe pre-e as LFTs continue to be uptrending. Per Dr. Castillo: * Continue to follow LFTs though may continue to increase. If stable or downtrending in AM, ok for discharge. If increasing, discuss with OB prior to discharge * Complete 24 hours of mag * AM labs * Continue oral nifedipine. Can increase to BID if increasing pressures * Should be discharged with BP cuff and log Plan Comments: - consult today - Anticipate discharge 05/16
[2023-05-15 19:50] VITALS: BP 120/81; PULSE 89; RESP 18; TEMP 36.7; O2SAT 98
[2023-05-15 23:50] VITALS: BP 120/76; PULSE 93; RESP 18; TEMP 36.8; O2SAT 97
[2023-05-16] MEDS: IBUPROFEN 600 MG TABLET PO (03:35)
[2023-05-16 03:45] VITALS: BP 119/80; PULSE 85; RESP 20; TEMP 36.6; O2SAT 97
[2023-05-16 06:43] LABS: Hematocrit 30.2 % (33.0-51.0); Hemoglobin* 9.8 gm/dL (12.0-16.0); Mean Corpuscular HGB Conc 33 gm/dL (32-36); Mean Corpuscular Hemoglobin 31 pg (26-34); Mean Corpuscular Volume 95 fL (80-100); Platelet Count* 267 K/uL (140-440); Red Blood Count 3.17 m/uL (4.00-5.20); White Blood Count* 10.01 K/uL (4.50-11.00)
[2023-05-16 06:49] LABS: Slide Review Reflex No
[2023-05-16 07:03] LABS: Creatinine* 0.5 mg/dL (0.5-1.5); Estimated Glomerular Filt Rate 125 ml/min
[2023-05-16 07:04] LABS: Alanine Aminotransferase* 171 U/L (4-35); Aspartate Amino Transferase* 131 U/L (12-35); Blood Urea Nitrogen* 10 mg/dL (5-24)
--- NOTE | 2023-05-16 07:57 | PM.OBDSVD1 ---
DS: Providers Provider Date Seen: 05/16/23 Date of admission: 05/12/23 17:02 Primary care physician: Cecilia Ricardo MD Admitting Clinician: Cecilia Ricardo MD Attending Physician on discharge: Cecilia Ricardo MD DS: Diagnosis Discharge Diagnosis (1) Pre-eclampsia, severe, delivered: Status: Acute Problem details: based on urine protein/creatinine ratio of 0.3 and AST elevation greater than 2x upper limit of normal Exam Const: Vital Signs, click to edit/add: Vital Signs - 24 hr 05/15/23 07:58 05/15/23 12:24 05/15/23 15:05 Temperature 98.0 F 98.0 F 99.1 F Pulse Rate [Left P ulse Oximeter] 79 78 92 Respiratory Rate 16 20 16 Blood Pressure [Le ft Arm] 128/84 117/80 127/83 Pulse Oximetry Oxygen Delivery Me thod 05/15/23 19:50 05/15/23 23:50 05/16/23 03:45 Temperature 98.0 F 98.3 F 97.9 F Pulse Rate [Left P ulse Oximeter] 89 93 85 Respiratory Rate 18 18 20 Blood Pressure [Le ft Arm] 120/81 120/76 119/80 Pulse Oximetry 98 97 97 Oxygen Delivery Me thod Room Air Room Air Room Air Documenting provider has reviewed patient's vital signs: yes Common normals: no apparent distress and oriented x3 Neck & C-Spine: Common normals: full ROM, no lymphadenopathy and no JVD Resp: Common normals: normal respiratory effort, no retractions, no use of accessory muscles, clear to auscultation bilaterally and percussion normal Auscultation: clear to auscultation bilaterally Percussion: percussion normal Cardio: Common normals: no JVD, regular rate, regular rhythm, S1 normal heart sound, S2 normal heart sound, no gallops, no clicks, no murmurs, no rub and peripheral pulses 2+ throughout Rate: regular rate Rhythm: regular rhythm Heart sounds: S1 normal and S2 normal Peripheral pulses: pulses 2+ throughout GI: Common normals: Normal to inspection, nondistended, normoactive bowel sounds present : Uterus: U/2 and firm Lochia: scant Extremity: Common normals: normal to inspection, full ROM, normal capillary refill, no joint enlargement, no clubbing, cyanosis or edema, no calf tenderness and no pedal edema Neuro: Common normals: oriented x3, moves all extremities, no focal motor deficits and no sensory deficits noted OB - DS: Summary Hospital Course Hospital Course: The patient is a 37 year old G 4 P 1 at 39 weeks gestation that was admitted to the Center on 05/12/23 for induction of labor due to gestational hypertension. She had an uncomplicated vaginal delivery. She delivered a viable male . She is breast feeding. She developed higher blood pressures after delivery that required treatment with nifedipine. She was also found with rising liver enzymes. Based on this, magnesium was started for 24 hours. She tolerated this okay. Liver enzymes did continue to rise on 05/15 and OB was consulted. Continued monitoring was recommended. When the liver enzymes were rechecked on 05/16, they were decreasing. Patient's headache had resolved at that time. No right upper quadrant pain. Ophelia well and was ready to discharge. Lochia was minimal. Ambulating and going to the bathroom without any problems. Plan to discharge home on 30 mg of nifedipine and have her monitor blood pressure closely at home. Peripartum Data Infant delivery method: Vaginal [place] Gender: Male Status at Discharge Functional status at discharge: independent ambulation Time Spent with Patient Time attestation: Total time spent providing and/or coordinating discharge services: Time spent: Less than 30 minutes Discharge Plan Discharge Disposition: Home, Self-Care Date of Admission: 05/12/23 17:02 Primary Care Provider: Cecilia Ricardo Condition: Stable Anticipated Discharge Date/Time: 05/16/23 07:54 Discharge Medications: New nifedipine 30 mg Tablet Extended Release 24hr 30 mg PO DAILY Qty: 30 0RF Continued PNV cmb#95-ferrous fumarate-FA [ Multivitamins] 28 mg iron- 800 mcg tablet 1 tab PO DAILY fluoxetine [Prozac] 10 mg capsule 10 mg PO QAM aspirin [Adult Low Dose Aspirin] 81 mg tablet,delayed release (DR/EC) 81 mg PO DAILY Discharge Orders: Discharge Order (Routine); Ordered 05/16/23 Ordered By: Surendra Byrnes Patient Education: Preeclampsia and Eclampsia After Delivery (GEN) Activity Level: No Restrictions and Activity as Tolerated Discharge Diet: Regular Follow Up Appointments: Cecilia Ricardo MD [Primary Care Provider] - Forms: [employer] Info Instructions
[2023-05-16 08:11] VITALS: BP 130/85; PULSE 72; RESP 18; TEMP 36.9; O2SAT 98
[2023-05-16] MEDS: DOCUSATE SODIUM 100 MG CAPSULE PO (09:22)
[2023-05-16] MEDS: FLUOXETINE HCL 10 MG CAPSULE PO (09:22)
[2023-05-16] MEDS: NIFEdipine 30 MG TAB.ER.24 PO (09:22)
== END 2023-05-16 10:25 | disposition home or self-care (01) | DRG 807 ==
PROVIDERS: Family Medicine; Admitting Provider Family Medicine; PCP Family Medicine; Visit Provider Family Medicine
DX: O13.4 Gestational [pregnancy-induced] hypertension without significant proteinuria, complicating childbirth (principal); Z37.0 Single live birth; O14.14 Severe pre-eclampsia complicating childbirth; O70.1 Second degree perineal laceration during delivery; O76 Abnormality in fetal heart rate and rhythm complicating labor and delivery; O62.3 Precipitate labor; O99.344 Other mental disorders complicating childbirth; F41.9 Anxiety disorder, unspecified; F32.A Depression, unspecified; Z86.16 Personal history of COVID-19; Z3A.39 39 weeks gestation of pregnancy
CPT/HCPCS: 36415; 80076; 82247; 82565; 82570; 83615; 83735; 84156; 84450; 84460; 84520; 85025; 85027; 85384; 85610; 85730; 86850; 86900; 86901; 88307; A9270; J2001; J3475; J7120

== ENCOUNTER 2023-05-17 08:36 | Outpatient (CLI) | payer OTHER, SELFPAY ==
--- NOTE | 2023-05-17 17:00 | W.PM.LAC.MC ---
Consult Note - Mom Date of Visit Date of visit: 05/17/23 [facility] consultant: Joyce Slade Visit Code: Visit Patient's Information Phone number: [phone] : 4 Para: 2 Allergies No Known Drug Allergies Allergy (Verified 05/15/23 19:28) Mother's Medical History: Medical History (Updated 05/18/23 @ 00:01 by Background Daemon) Pre-eclampsia, severe, delivered ?O14.14 - Severe pre-eclampsia complicating childbirth (ICD-10) Gestational HTN ?O13.9 - Gestational [-induced] hypertension without significant proteinuria, unspecified trimester (ICD-10) Delivery Information Delivery type: Vaginal Weeks Gestation: 39.1 Gestational Age: AGA Weight: 3.67 kg Discharge Weight: 3.406 kg Baby's Information Baby's Age at Visit: 4 days Baby's Provider or Clinic: Dr. Ricardo Jaundice: Yes (to BLE) Reason for Consult Reason for Consult: concern for latch, bili check Past Experience Past Experience: Yes (nursed her older daughter about 3 months) Current Frequency of Day Feedings: about every three hours around the clock Both Breasts: Yes Suck: strong once he gets going Latch: sometimes shallow Length of Time: feedings can last up to 60 minutes Pumping Pumping: No Supplementing EMB Supplement: No Formula Supplement: No Baby Elimination Number of Wet Diapers a Day: almost every feeding Number of BM a Day: about every other feeding Onsite Pre-Feed weight: 3.492 kg Post-Feed weight: 3.544 kg Milk Transferred (mL): 52 Assessments/Interventions Assessments/Interventions: Met with mom and this now 4 day old ex- term AGA baby for consult. Mom reports has really been challenging since D/C and that it can take between 45 - 60 minutes before baby will latch. She reports that once he does, he sometimes bites down but will then nurse well. Feedings can be over an hour long however as he will nurse for about 10 min/side once he's latched. She hasn't started pumping or offering any EBM/formula. Breasts are symmetrical but a little flatter in appearance than with rounded lower quadrants, intramammary distance looks to be a little wider than normal. Nipples are shorter but everted, both are damaged but healing (scabbed). Mom reports having trouble with her supply after her first child was born and she only nursed about three months. She feels her milk is in and her breasts are full, firm. Baby has gained 86 grams since D/C and is 5% below BW at 5 DOL. POC deny any caput/cephalohematoma at delivery and state he has equal ROM when turning his head/moving his extremities. He's jaundiced to his BLE. His palate, upper frenulum, and lower frenulum are all WNL. He has a strong suck on a finger. His tongue easily extends past the gum line and has good lateral movement. Mom attempted to latch him several times to the left side and even with good support of her breast and baby he didn't seem to sense that the nipple was in his mouth. When a 20 mm nipple shield was applied, he was able to latch and maintain it. The latch looked wide and mom was comfortable. After a few minutes mom removed the shield and he was able to latch again, mom was comfortable. He nursed for 10 - 15 minutes, the mom switched him to the right. She started with the shield but was able to take it off after a few minutes and nurse comfortably without it. When he had finished the 20 - 30 minute feeding he had transferred 52 ml. TSB was drawn during the feeding, result was 17.7. Mom was measured and flange size suggested, handout given. Plan: 1. Mom to continue nursing ALD, or at least every three hours. Offer both sides at each feeding and if needed start the feeding with the nipple shield. OK if he needs it throughout the feeding or she can try removing it after a few minutes. 2. No medical need to supplement. 3. Mom can pump or hand express to comfort if needed after nursing, no need to pump to empty. 4. PCP called with TSB result. 5. POC were shown a gentle massage to try that may relax baby's jaw. Handout given on local bodywork therapists. 6. Suggested mom express her milk onto her nipples and then leave them open to air for a few minutes, but they are scabbing and seem to be healing well. 7. Mom declined a f/u call or appointment but said she will call if she has trouble weaning baby from the nipple shield. Encouraged Baby Talk. [facility] Home Medications and Allergies Home Medications Medication Instructions Recorded Confirmed Type vit no.95-ferrous 1 tab PO DAILY 04/20/22 05/12/23 History fumarate 28 mg-folic acid 800 mcg tablet ( Multivitamins) aspirin 81 mg tablet,delayed 81 mg PO DAILY 05/10/23 05/12/23 History release (Adult Low Dose Aspirin) fluoxetine 10 mg capsule (Prozac) 10 mg PO QAM 05/10/23 05/12/23 History Allergies Allergy/AdvReac Type Severity Reaction Status Date / Time No Known Drug Allergies Allergy Verified 05/15/23 19:28
== END 2023-05-17 08:37 | disposition home or self-care (01) ==
LOC: OB LAC 08:37
PROVIDERS: PCP Family Medicine; Visit Provider Family Medicine
DX: Z39.1 Encounter for care and examination of lactating mother (principal)
CPT/HCPCS: G0463

== ENCOUNTER 2024-03-20 08:00 | Outpatient (RCR) | payer OTHER, SELFPAY | END 2024-07-18 23:59 | disposition home or self-care (01) | PROVIDERS: PCP Family Medicine; Visit Provider Family Medicine | DX: M62.89 Other specified disorders of muscle (principal); Z39.2 Encounter for routine postpartum follow-up; R27.8 Other lack of coordination; K59.00 Constipation, unspecified; Z51.89 Encounter for other specified aftercare | CPT/HCPCS: 97110; 97140; 97162; 97535 ==